=== PATIENT | male | born 1960 | race Caucasian/White ===

== ENCOUNTER 2024-12-15 09:50 | Inpatient (IN) | payer MEDICARE, OTHER ==
[~2024-12-15] VITALS: Ht 176.5 cm; Wt 90.7 kg
[2024-12-15] MEDS ORDERED: VANCOMYCIN 1 GM VIAL ONE (11:46)
[2024-12-15] MEDS ORDERED: LIDOCAINE 2%-EPI 1:100,000 30 ML VIAL ONE (11:46)
[2024-12-15] MEDS ORDERED: OXYMETAZOLINE HCL NASAL SPRAY 30 ML BOTTLE NS ONE ×2 (11:46→11:54)
[2024-12-15] MEDS ORDERED: dexaMETHasone SOD PHOSPHATE 2 ML ONE (11:46)
[2024-12-15] MEDS ORDERED: LIDOCAINE 2% JEL UROJET 10 ML MM ONE (11:53)
[2024-12-15] MEDS ORDERED: MIDAZOLAM HCL 2 MG/2ML VIAL ONE (11:53)
[2024-12-15] MEDS ORDERED: FENTANYL PF 100MCG/2ML AMPUL ONE (11:53)
[2024-12-15] MEDS ORDERED: FAMOTIDINE/PF INJ 20 MG/2 ML VIAL IV ONE (11:54)
[2024-12-15] MEDS ORDERED: ROCURONIUM BROMIDE 50 MG/5 ML ONE (11:54)
[2024-12-15] MEDS ORDERED: HYDROMORPHONE 1 MG/1 ML DISP.SYRIN IV PRN ×2 (13:30→17:30)
[2024-12-15] MEDS ORDERED: SUGAMMADEX SODIUM 200 MG/2 ML VIAL IV ONE (14:08)
[2024-12-15] MEDS ORDERED: MAG HYDROX/AL HYDROX/SIMETH 30 ML UDC PO PRN (17:30)
[2024-12-15] MEDS ORDERED: ACETAMINOPHEN 325 MG TABLET PO PRN ×2 (17:30→18:00)
[2024-12-15] MEDS ORDERED: Z GUARD REMEDY 4 OZ OINT TP PRN (17:30)
[2024-12-15] MEDS ORDERED: ONDANSETRON HCL/PF 4 MG/2 ML VIAL IVP PRN (17:30)
[2024-12-15] MEDS ORDERED: MAGNESIUM HYDROXIDE 30 ML UDC PO PRN (17:30)
[2024-12-15 18:00] VITALS: BP 116/81; TEMP 98.4; O2SAT 96
[2024-12-15] MEDS ORDERED: ONDANSETRON HCL/PF 4 MG/2 ML VIAL IV PRN (18:00)
[2024-12-15] MEDS ORDERED: IV NS 0.9% 1,000 ML IV PRN (18:00)
[2024-12-15] MEDS: HYDROCODONE/APAP 10/325MG TABLET PO PRN (18:37)
[2024-12-15 20:00] VITALS: BP 150/92; TEMP 97.9; O2SAT 98
[2024-12-16] MEDS: VANCOMYCIN 1 GM in IV D5W 250ml IV SCH (00:16)
[2024-12-16 08:00] VITALS: BP 151/84; TEMP 98.4; O2SAT 97
== END 2024-12-16 14:48 | disposition home or self-care (01) | DRG 142 ==
LOC: DS 09:50 → MED 16:22
PROC: 0NSR0ZZ Reposition Maxilla, Open Approach (ICD-10-PCS; 2024-12-15)
PROC: 0NST04Z Reposition Right Mandible with Internal Fixation Device, Open Approach (ICD-10-PCS; 2024-12-15)
PROC: 0N5R0ZZ Destruction of Maxilla, Open Approach (ICD-10-PCS; 2024-12-15)
PROC: 0N5T0ZZ Destruction of Right Mandible, Open Approach (ICD-10-PCS; 2024-12-15)
PROC: 0NUR07Z Supplement Maxilla with Autologous Tissue Substitute, Open Approach (ICD-10-PCS; 2024-12-15)
PROC: 0NUL07Z Supplement Left Palatine Bone with Autologous Tissue Substitute, Open Approach (ICD-10-PCS; 2024-12-15)
PROC: 0NUV07Z Supplement Left Mandible with Autologous Tissue Substitute, Open Approach (ICD-10-PCS; 2024-12-15)
PROC: 0NUT07Z Supplement Right Mandible with Autologous Tissue Substitute, Open Approach (ICD-10-PCS; 2024-12-15)
PROC: 0NBV0ZX Excision of Left Mandible, Open Approach, Diagnostic (ICD-10-PCS; 2024-12-15)
PROC: 0NSV04Z Reposition Left Mandible with Internal Fixation Device, Open Approach (ICD-10-PCS; principal; 2024-12-15 13:10)
DX: S02.40CA Maxillary fracture, right side, initial encounter for closed fracture (principal); S02.40DA Maxillary fracture, left side, initial encounter for closed fracture; S02.69XA Fracture of mandible of other specified site, initial encounter for closed fracture; M27.2 Inflammatory conditions of jaws; I10 Essential (primary) hypertension; Z88.0 Allergy status to penicillin; D16.4 Benign neoplasm of bones of skull and face; M60.88 Other myositis, other site; X58.XXXA Exposure to other specified factors, initial encounter; Y93.9 Activity, unspecified; Y92.009 Unspecified place in unspecified non-institutional (private) residence as the place of occurrence of the external cause; H40.9 Unspecified glaucoma
CPT/HCPCS: A4223; C1713; G0378; J1100; J1308; J2250; J2405; J2704; J3010; J3370; J3490; J7030; J7060